=== PATIENT | female | born 1990 | race Two or more races ===

== ENCOUNTER 2017-11-16 08:30 | Inpatient (IN) | payer OTHER ==
[2017-11-16 09:52] VITALS: BMI 43.2
[2017-11-16 10:19] LABS: BASO % 0.4 % (0-2.0); EOS % 0.2 % (0-4.5); NEUT % 78.8 % (42.8-82.8)
[2017-11-16 10:22] LABS: HEMATOCRIT 39.3 % (32.4-45.2); HEMOGLOBIN 13.1 GM/dL (10.7-15.3); LYMPH % 13.6 % (8-40); MCH 27.4 pg (25.7-33.7); MCHC 33.3 g/dl (32.0-36.0); MEAN CELL VOLUME 82.4 fl (80-96); PLATELET COUNT 288 K/MM3 (134-434); RBC 4.78 M/mm3 (3.60-5.2); RDW 14.1 % (11.6-15.6); WHITE BLOOD COUNT 13.4 K/mm3 (4.0-10.0)
[2017-11-16 10:34] LABS: INR 0.93 (0.82-1.09); PROTHROMBIN TIME (PATIENT) 10.5 SEC (9.7-13.0)
[2017-11-16 10:36] LABS: ACTIVATED PTT 26.2 SECONDS (26.9-34.4)
[2017-11-16 10:41] LABS: ANION GAP 5 (8-16); BLOOD UREA NITROGEN 9 mg/dL (7-18); CHLORIDE 109 mmol/L (98-107); CO2 25 mmol/L (21-32); CREATININE 0.6 mg/dL (0.55-1.02); GLUCOSE,RANDOM 84 mg/dL (74-106); POTASSIUM 4.6 mmol/L (3.5-5.1); SODIUM 139 mmol/L (136-145)
[2017-11-16] MEDS ORDERED: DEXTROSE 5%-LACTATED RINGERS 1,000 ML IV SCH (16:45)
[2017-11-16] MEDS ORDERED: OXYTOCIN 30 UNITS in 0.9% NS 30 UNIT/500 ML INFUS.BAG IVPB ONE (18:20)
[2017-11-16] MEDS ORDERED: AMPICILLIN SODIUM 2 GM VIAL ONE (18:44)
[2017-11-16] MEDS ORDERED: AMPICILLIN - 2 GM in SODIUM CHLORIDE 100 ML IVPB ONE (18:45)
[2017-11-16] MEDS ORDERED: OXYTOCIN 30 UNITS in 0.9% NS 30 UNIT/500 ML INFUS.BAG IVPB SCH (18:45)
--- NOTE | 2017-11-16 19:25 | HP ---
Past Medical History - Admission History of Present Illness: 27 yo @ 40 2/7 wks by first trimester ultrasound, EDC 11/14/2017 complicated by: 1. BMI 43 - 19 lb wt gain Normal early GCT and normal 26 wk GCT Sonogram 11/14/17 - EFW 67% (3886 gms/8lb 9oz) 2. GBS positive - no PCN allergy 3. History of PCOS Patient reports pain with contractions which began this AM She reports movement, denies leakage of fluid or vaginal bleeding. History Source: Patient Limitations to Obtaining History: No Limitations - Past Medical History Cardiovascular: No: HTN Pulmonary: No: Asthma Gastrointestinal: No: GERD ...: 1 ...Para: 0 ...Term: 0 ...: 0 ...Spon : 0 ...Induced : 0 ...Multiple Gestation: 0 ...LMP: 01/29/17 ... Weeks Gestation by Dates: 41.5 ...EDC by Dates: 11/05/17 ...EDC by Sono: 11/14/17 Heme/Onc: No: Anemia - Past Surgical History Past Surgical History: Yes: Tonsillectomy Hx Myomectomy: No Hx Transabdominal Cerclage: No - Smoking History Smoking history: Never smoked - Alcohol/Substance Use Hx Alcohol Use: No History of Substance Use: reports: None - Social History History of Recent Travel: No Home Medications - Allergies Allergies/Adverse Reactions: Allergies Allergy/AdvReac Type Severity Reaction Status Date / Time No Known Allergies Allergy Verified 10/26/17 16:19 - Home Medications Home Medications: Ambulatory Orders Vit/Iron Fum/Folic AC [ Tablet] 1 each PO DAILY 10/26/17 Family Disease History - Family Disease History Family History: Denies Review of Systems - Review of Systems Constitutional: reports: No Symptoms Neck: reports: No Symptoms Cardiovascular: reports: No Symptoms Respiratory: reports: No Symptoms Gastrointestinal: reports: No Symptoms Genitourinary: reports: No Symptoms Musculoskeletal: reports: No Symptoms Neurological: reports: No Symptoms Endocrine: reports: No Symptoms Psychiatric: reports: No Symptoms Physical Exam - Maternity Vital Signs: Vital Signs Temperature 98.2 F 11/16/17 18:00 Pulse Rate 79 11/16/17 19:00 Respiratory Rate 20 11/16/17 19:00 Blood Pressure 121/73 11/16/17 19:00 O2 Sat by Pulse Oximetry (%) Constitutional: Yes: Well Nourished, No Distress, Calm Cardiovascular: Yes: Regular Rate and Rhythm Lungs: Clear to auscultation - Abdominal Exam/OB Fundal Height: 40 Number of Fetuses: Single Presentation: Vertex Contractions: Yes Regularity: Regular Intensity: Mod/Strong Category: I Accelerations: Non-Uniform Decelerations: None - Vaginal Exam/OB Dilatation (cm): 3 Effacement (%): 50 Amniotic Membrane Status: Intact - Physical Exam Psychiatric: Yes: Alert, Oriented - Labs Lab Results: CBC, BMP 11/16/17 10:00 11/16/17 10:00 Hemorrhage Risk Assessment - Risk Factors Medium Risk Factors: Yes: None High Risk Factors: Yes: None Risk Score: 1 Risk Level: Medium Risk Assessment/Plan 27 yo @ 40 2/7 wks active labor 1. Admit to L&D; Consents reviewed and signed; Routine labs collected and sent 2. GBS positive - will start ampicillin per protocol 3. Will offer pain medication upon patient request
[2017-11-16] MEDS: ELECTROLYTE-148 SOLN 1,000 ML IV SCH (19:30)
[2017-11-16] MEDS ORDERED: FENTANYL/BUPIVACAINE/NS/PF - PCEA - 50 ML DISP.SYRIN EP ONE (19:59)
[2017-11-16] MEDS ORDERED: NALOXONE HCL 0.4 MG/ML VIAL IVPUSH PRN (20:11)
[2017-11-16] MEDS ORDERED: FENTANYL/BUPIVACAINE/NS/PF - PCEA - 50 ML DISP.SYRIN EP SCH (20:15)
--- NOTE | 2017-11-16 20:56 | PN ---
Ante-Partal Exam - Subjective Subjective: Comfortable s/p epidural Vital Signs: Vital Signs Temperature 98.2 F 11/16/17 18:00 Pulse Rate 79 11/16/17 19:00 Respiratory Rate 20 11/16/17 19:00 Blood Pressure 121/73 11/16/17 19:00 O2 Sat by Pulse Oximetry (%) Bleeding: No Headache: No Visual changes: No Right upper quadrant pain: No - Contractions Contractions: Yes Regularity: Regular Intensity: Unaware Monitor Mode: External - Exam during Labor Heart Rate: 130 Variability: Moderate Category: I Monitor Accelerations: Present Monitor Decelerations: None Exam: Vaginal Dilatation (cm): 3 Effacement (%): 80 Amniotic Membrane Status: Ruptured (clear) Amniotic Fluid: Clear Station: -3 - Intrapartum Hemorrhage Risk Medium Risk Factors: None High Risk Factors: None Risk Score: 0 Risk Level: Low Risk - Assessment/Plan Assessment/Plan: 27 yo active labor 1. Good cervical change, will continue pitocin per protocol 2. GBS positive, on ampicillin per protocol 3. Pain well controlled with epidural 4. Will continue expectant management
[2017-11-16] MEDS ORDERED: AMPICILLIN SODIUM 1 GM VIAL ONE (22:55)
[2017-11-16] MEDS: AMPICILLIN - 1 GM in SODIUM CHLORIDE 100 ML IVPB SCH (23:00)
--- NOTE | 2017-11-16 23:17 | PN ---
Ante-Partal Exam - Subjective Subjective: Comfortable s/p epidural No complaints Vital Signs: Vital Signs Temperature 99.0 F 11/16/17 22:00 Pulse Rate 92 H 11/16/17 23:06 Respiratory Rate 18 11/16/17 23:06 Blood Pressure 112/60 11/16/17 23:06 O2 Sat by Pulse Oximetry (%) 99 11/16/17 23:06 Bleeding: No Headache: No Visual changes: No Right upper quadrant pain: No - Contractions Contractions: Yes Regularity: Regular Intensity: Unaware Monitor Mode: External - Exam during Labor Heart Rate: 135 Variability: Moderate Category: I Monitor Accelerations: Present Monitor Decelerations: None Exam: Vaginal Dilatation (cm): 3 Effacement (%): 80 Amniotic Membrane Status: Intact Presentation: Vertex Station: -1 - Intrapartum Hemorrhage Risk Medium Risk Factors: None High Risk Factors: None Risk Score: 0 Risk Level: Low Risk - Assessment/Plan Assessment/Plan: 27 yo active labor 1. good cervical change 2. continue ampicillin 3. pain well controlled with epidural 4. category I FHT
[2017-11-17] MEDS ORDERED: FENTANYL/BUPIVACAINE/NS/PF - PCEA - 50 ML DISP.SYRIN EP ONE ×3 (00:14→09:04)
[2017-11-17] MEDS ORDERED: AMPICILLIN SODIUM 1 GM VIAL ONE ×4 (02:46→14:29)
[2017-11-17] MEDS: AMPICILLIN - 1 GM in SODIUM CHLORIDE 100 ML IVPB SCH ×4 (03:00→14:35)
[2017-11-17] MEDS: ELECTROLYTE-148 SOLN 1,000 ML IV SCH (03:00)
--- NOTE | 2017-11-17 03:35 | PN ---
Ante-Partal Exam - Subjective Subjective: Patient reports back pain with contractions Vital Signs: Vital Signs Temperature 98.2 F 11/17/17 01:00 Pulse Rate 86 11/17/17 02:30 Respiratory Rate 18 11/17/17 02:30 Blood Pressure 113/60 11/17/17 02:30 O2 Sat by Pulse Oximetry (%) 100 11/17/17 02:30 Bleeding: Yes Bleeding Description: Mild Headache: No Visual changes: No Right upper quadrant pain: No - Contractions Contractions: Yes Regularity: Regular Intensity: Mod/Strong Monitor Mode: External - Exam during Labor Heart Rate: 135 Variability: Moderate Category: I Monitor Accelerations: Present Monitor Decelerations: None Exam: Vaginal Dilatation (cm): 5 Effacement (%): 100 Amniotic Membrane Status: Bulging Amniotic Fluid: Blood Stained Presentation: Vertex Station: 0 - Intrapartum Hemorrhage Risk Medium Risk Factors: None High Risk Factors: None Risk Score: 0 Risk Level: Low Risk - Assessment/Plan Assessment/Plan: 27 yo active labor 1. Good cervical change, will continue pitocin per protocol 2. GBS positive, on ampicillin 3. Category I FHT 4. Pain with inadequate control, will contact anesthesia for assistance 5. Will proceed with expectant management
[2017-11-17] MEDS ORDERED: BUPIVACAINE HCL/PF 0.5% (5MG/ML) 10 ML VIAL ONE (05:44)
--- NOTE | 2017-11-17 07:16 | PN ---
Ante-Partal Exam - Subjective Subjective: Patient comfortable s/p epidural Vital Signs: Vital Signs Temperature 99.5 F 11/17/17 06:00 Pulse Rate 82 11/17/17 06:40 Respiratory Rate 18 11/17/17 06:40 Blood Pressure 120/71 11/17/17 06:40 O2 Sat by Pulse Oximetry (%) 97 11/17/17 06:40 Bleeding: No Headache: No Visual changes: No Right upper quadrant pain: No - Contractions Contractions: Yes Regularity: Regular Intensity: Moderate Monitor Mode: External - Exam during Labor Heart Rate: 135 Variability: Moderate Category: I Monitor Accelerations: Present Monitor Decelerations: None Exam: Vaginal Dilatation (cm): 8 Effacement (%): 100 Amniotic Membrane Status: Ruptured Amniotic Fluid: Blood Stained Presentation: Vertex Station: -1 - Intrapartum Hemorrhage Risk Medium Risk Factors: None High Risk Factors: None Risk Score: 0 Risk Level: Low Risk - Assessment/Plan Assessment/Plan: 27 yo active labor 1. Cervical change noted, will restart pitocin 2. GBS positive, on ampicillin 3. Category I FHT 4. Pain well controlled with epidural 5. Will proceed with expectant management
[2017-11-17] MEDS ORDERED: OXYTOCIN 30 UNITS in 0.9% NS 30 UNIT/500 ML INFUS.BAG IVPB ONE (07:41)
[2017-11-17] MEDS ORDERED: OXYTOCIN 20 UNITS in 0.9% NS 20 UNIT/1,000 ML INFUS.BAG IV ONE ×2 (10:52→17:14)
[2017-11-17] MEDS ORDERED: LIDOCAINE HCL 1% PRESERVATIVE FREE - 30ML VIAL ONE (14:57)
[2017-11-17] MEDS ORDERED: oxyCODONE HCL 5 MG TABLET PO PRN (15:26)
[2017-11-17] MEDS ORDERED: BENZOCAINE 20% 57 GM BOTTLE TP PRN (15:26)
[2017-11-17] MEDS ORDERED: METHYLERGONOVINE MALEATE 0.2 MG/1 ML AMP IM PRN (15:26)
[2017-11-17] MEDS ORDERED: BENZOCAINE 28 GM HEMORRHOIDAL OINTMENT TP PRN (15:26)
[2017-11-17] MEDS ORDERED: BISACODYL 10 MG SUPP.RECT RC PRN (15:26)
[2017-11-17] MEDS ORDERED: WITCH HAZEL 50% (TUCKS) 40 PAD/JAR PAD TP PRN (15:26)
[2017-11-17] MEDS ORDERED: D5W-LR W/ 20 UNITS OXYTOCIN 1,000 ML IV SCH (15:30)
[2017-11-17] MEDS ORDERED: OXYTOCIN 20 UNITS in 0.9% NS 20 UNIT/1,000 ML INFUS.BAG IV SCH (15:45)
[2017-11-17 15:49] LABS: ARTERIAL BLD GAS O2 SATURATION 17.6 % (90-98.9); ARTERIAL BLOOD GAS BASE EXCESS -9.6 meq/l (-2-2); ARTERIAL BLOOD GAS PO2 14.8 mmHg (80-100); ARTERIAL BLOOD GAS pH 7.21 (7.35-7.45)
[2017-11-17 15:57] LABS: VENOUS PC02 33.4 mmHg (38-52); VENOUS PH 7.39 (7.32-7.42); VENOUS PO2 36.5 mmHg (28-48)
[2017-11-17] MEDS ORDERED: ACETAMINOPHEN 325 MG TABLET (FP) ONE (17:14)
[2017-11-17] MEDS ORDERED: IBUPROFEN 600 MG TABLET (FP) PO ONE (17:14)
[2017-11-17] MEDS: ACETAMINOPHEN 325 MG TABLET (FP) PO PRN (17:50)
[2017-11-17] MEDS: IBUPROFEN 600 MG TABLET (FP) PO PRN (17:50)
[2017-11-17] MEDS: FERROUS SO4 325 MG TABLET (FP) PO SCH (18:20)
[2017-11-18] MEDS: IBUPROFEN 600 MG TABLET (FP) PO PRN (01:41)
[2017-11-18] MEDS: ACETAMINOPHEN 325 MG TABLET (FP) PO PRN (01:41)
[2017-11-18 07:48] LABS: BASO % 0.3 % (0-2.0); EOS % 0.4 % (0-4.5); HEMOGLOBIN 11.6 GM/dL (10.7-15.3); LYMPH % 11.7 % (8-40); MCH 27.7 pg (25.7-33.7); MCHC 33.2 g/dl (32.0-36.0); MEAN CELL VOLUME 83.6 fl (80-96); MEAN PLT VOLUME 9.2 fl (7.5-11.1); MONO % 7.5 % (3.8-10.2); NEUT % 80.1 % (42.8-82.8); PLATELET COUNT 184 K/MM3 (134-434); RBC 4.19 M/mm3 (3.60-5.2); RDW 14.3 % (11.6-15.6); WHITE BLOOD COUNT 16.9 K/mm3 (4.0-10.0)
[2017-11-18] MEDS: FERROUS SO4 325 MG TABLET (FP) PO SCH ×2 (09:22→16:59)
[2017-11-18] MEDS: PRENATAL VITAMINS W/ FOLIC ACID TABLET (FP) PO SCH (09:22)
--- NOTE | 2017-11-18 14:57 | PN ---
Post Progress Note - Subjective Subjective: No complains, voiding, ambulating, bleeding controlled Post Day: 1 Type of Delivery: Vital Signs: Vital Signs Temperature 98.2 F 11/18/17 09:43 Pulse Rate 85 11/18/17 09:43 Respiratory Rate 18 11/18/17 09:43 Blood Pressure 111/63 11/18/17 09:43 O2 Sat by Pulse Oximetry (%) 100 11/17/17 16:00 Breast Exam: Yes: Soft Uterus: Yes: Fundus Firm Abdomen/GI: Yes: Abdomen soft Lochia: Yes: Rubra Lochia, amount: Small Extremities: Yes: Calves non-tender Perineum: Yes: Laceration Activity: Ambulating - Labs Labs: CBC WBC 16.9 K/mm3 (4.0-10.0) H 11/18/17 07:03 RBC 4.19 M/mm3 (3.60-5.2) 11/18/17 07:03 Hgb 11.6 GM/dL (10.7-15.3) D 11/18/17 07:03 Hct 35.0 % (32.4-45.2) 11/18/17 07:03 MCV 83.6 fl (80-96) 11/18/17 07:03 MCH 27.7 pg (25.7-33.7) 11/18/17 07:03 MCHC 33.2 g/dl (32.0-36.0) 11/18/17 07:03 RDW 14.3 % (11.6-15.6) 11/18/17 07:03 Plt Count 184 K/MM3 (134-434) D 11/18/17 07:03 MPV 9.2 fl (7.5-11.1) 11/18/17 07:03 Neutrophils % 80.1 % (42.8-82.8) 11/18/17 07:03 Lymphocytes % 11.7 % (8-40) 11/18/17 07:03 Monocytes % 7.5 % (3.8-10.2) 11/18/17 07:03 Eosinophils % 0.4 % (0-4.5) D 11/18/17 07:03 Basophils % 0.3 % (0-2.0) 11/18/17 07:03 Assessment/Plan 27yo P1 s/p PPD # 1 VSS, Afebrile Doing well Rh positive no need for RhoGam Repeat CBC in am to follow WBC Plan D/C 11/19/17 NPV 6wks RTO 4-6 wks
--- NOTE | 2017-11-18 14:59 | DS ---
Physical Exam-INDUSTRI[employer]OR Vital Signs: Vital Signs Temperature 98.2 F 11/18/17 09:43 Pulse Rate 85 11/18/17 09:43 Respiratory Rate 18 11/18/17 09:43 Blood Pressure 111/63 11/18/17 09:43 O2 Sat by Pulse Oximetry (%) 100 11/17/17 16:00 Constitutional: Yes: Well Nourished Eyes: Yes: WNL, Conjunctiva Clear, EOM Intact HENT: Yes: WNL Neck: Yes: WNL, Supple, Trachea Midline Cardiovascular: Yes: WNL, Regular Rate and Rhythm Respiratory: Yes: WNL, Regular, CTA Bilaterally Gastrointestinal: Yes: WNL, Normal Bowel Sounds, Soft Pelvis: Yes: WNL External Genitalia: Yes: Normal Vaginal Exam: Yes: Normal Uterus: Yes: Normal ....Post : Yes: Uterus firm, Uterus non-tender Breast(s): Yes: WNL Musculoskeletal: Yes: WNL Extremities: Yes: WNL Integumentary: Yes: WNL Neurological: Yes: WNL, Alert, Oriented ...Motor Strength: WNL Psychiatric: Yes: WNL, Alert, Oriented Labs: CBC, BMP 11/18/17 07:03 11/16/17 10:00 Delivery - Delivery Type of Anesthesia: Local, Epidural Episiotomy/Laceration: Midline, 1st degree EBL (cc): 300 Delivery, Single - Stages of Labor Date 1st Stage Initiatied: 11/16/17 Time 1st Stage Initiated: 10:00 Date 2nd Stage Initiated: 11/17/17 Time 2nd Stage Initiated: 14:00 Date of Delivery: 11/17/17 Time of Delivery: 15:00 Time Placenta Delivered: 15:04 - 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 You may walk unlimited donell of and climb stairs. You may resume driving the car when you feel safe and comfortable behind the wheel. No sexual activity as instructed. Wound care If you have a bandage, leave it on, and keep dry for 48-72 hours. After that time discard the outer bandage. If they are tapes on the skin under the out of bandage leave them in place. They will peel off in the next 7 to 10 days. Do Not Peel them off. You may shower the day after surgery. If there are tapes present on the skin, you may shower over them. Diet There are no dietary restrictions. Eat healthy, high-fiber foods. Drink 6 to 8 glasses of liquid each day. This will assist in keeping your bowels are regular. Pain management You may take Tylenol or acetaminophen or Ibuprofen (for example, Motrin, Advil etc.) from my pain prescription medication is ordered should be taken as prescribed for moderate to severe pain. Call MD for any of the following: Severe pain not relieved by medication Fever of 101 or higher Excessive bleeding or drainage on dressing Inability to urinate Referrals: Ruth Trent MD [Staff Physician] - Disposition: HOME - Home Medications Comprehensive Discharge Medication List: Ambulatory Orders Vit/Iron Fum/Folic AC [ Tablet] 1 each PO DAILY 10/26/17
--- NOTE | 2017-11-18 17:24 | PN ---
Progress Note (short form) - Note Progress Note: Patient had normal vaginal delivery yesterday under epidural anesthesia and is c /o some numbness and heaviness left thigh.It could be from being in tendlinberg position pushing baby.Requested neurology consult for further evaluation and will f/u tomorrow.
[2017-11-18] MEDS ORDERED: SENNOSIDES/DOCUSATE COMBO (SENNA PLUS) TABLET (UD) PO PRN (22:00)
--- NOTE | 2017-11-19 06:52 | PN ---
Post Progress Note - Subjective Subjective: Patient is currently feeling well Reported feeling numbness in the Left thigh after sitting for too long on the toilet Reports full sensation and mobility voiding, ambulating without difficulty Post Day: 2 Type of Delivery: Vital Signs: Vital Signs Temperature 98.3 F 11/18/17 22:00 Pulse Rate 83 11/18/17 22:00 Respiratory Rate 18 11/18/17 22:00 Blood Pressure 113/66 11/18/17 22:00 O2 Sat by Pulse Oximetry (%) 100 11/17/17 16:00 Breast Exam: Yes: Soft Uterus: Yes: Fundus Firm Abdomen/GI: Yes: Abdomen soft Lochia: Yes: Rubra Lochia, amount: Small Extremities: Yes: Calves non-tender, Edema Activity: Ambulating - Labs Labs: CBC WBC 16.9 K/mm3 (4.0-10.0) H 11/18/17 07:03 RBC 4.19 M/mm3 (3.60-5.2) 11/18/17 07:03 Hgb 11.6 GM/dL (10.7-15.3) D 11/18/17 07:03 Hct 35.0 % (32.4-45.2) 11/18/17 07:03 MCV 83.6 fl (80-96) 11/18/17 07:03 MCH 27.7 pg (25.7-33.7) 11/18/17 07:03 MCHC 33.2 g/dl (32.0-36.0) 11/18/17 07:03 RDW 14.3 % (11.6-15.6) 11/18/17 07:03 Plt Count 184 K/MM3 (134-434) D 11/18/17 07:03 MPV 9.2 fl (7.5-11.1) 11/18/17 07:03 Neutrophils % 80.1 % (42.8-82.8) 11/18/17 07:03 Lymphocytes % 11.7 % (8-40) 11/18/17 07:03 Monocytes % 7.5 % (3.8-10.2) 11/18/17 07:03 Eosinophils % 0.4 % (0-4.5) D 11/18/17 07:03 Basophils % 0.3 % (0-2.0) 11/18/17 07:03 Other Findings, Remarks: Neuro exam equal lower extremity bilaterally Assessment/Plan 27yo P1 s/p PPD # 2 VSS, Afebrile Doing well WBC dropping appropriately Plan D/C 11/19/17 once seen by Neuro NPV 6wks RTO 4-6 wks
[2017-11-19] MEDS: FERROUS SO4 325 MG TABLET (FP) PO SCH ×2 (08:15→17:09)
[2017-11-19 08:38] LABS: BASO % 0.3 % (0-2.0); EOS % 1.5 % (0-4.5); HEMATOCRIT 32.8 % (32.4-45.2); HEMOGLOBIN 10.8 GM/dL (10.7-15.3); LYMPH % 14.7 % (8-40); MCH 27.4 pg (25.7-33.7); MEAN CELL VOLUME 83.1 fl (80-96); MEAN PLT VOLUME 8.8 fl (7.5-11.1); NEUT % 77.5 % (42.8-82.8); PLATELET COUNT 225 K/MM3 (134-434); RBC 3.95 M/mm3 (3.60-5.2); RDW 14.1 % (11.6-15.6); WHITE BLOOD COUNT 12.6 K/mm3 (4.0-10.0)
[2017-11-19] MEDS: PRENATAL VITAMINS W/ FOLIC ACID TABLET (FP) PO SCH (10:11)
[2017-11-19 10:22] VITALS: BP 121/79; PULSE 77; TEMP 98.6
--- NOTE | 2017-11-19 18:40 | CONSULT ---
Consult - text type - Consultation Consultation Note: NEUROLOGY CONSULTATION is greatly appreciated: This 27 yo woman with no sig PMH is 2 days post- her first child. She has history of episodic headaches in the past as well as growing pains (age 11-12). For much of her adult life she can have back pain with leg pains and cramps before her periods. Yesterday, 1 day post-, while resting in bed, she developed a "heaviness" and "numbness" involving the entire left thigh (circumstantially) between the hip and the knee which resolved when she walked and recurred at res over a few hours. Better today. ADRIANO: Obese, -SLR. Distal pulses intact NEURO: MS/speech: Normal CN II-XII: Normal Motor: No drift or tremor. Normal strength, tone, bulk, and reflexes. Toes downgoing. Coord: No FT dystaxia Sensory: Normal in all distributions both legs. Romberg - Gait: Normal. Walks on heals, toes, tandems. IMP: Normal examination. Most likely a post- exacerbation of Restless Legs Syndrome (RLS)- possibly due to blood/iron loss. Distribution not suggestive of Meralgia paresthetica or radiculopathy. SUGGEST: Continue Fe++ and vitamin supplements. Pt warned she may have recurrent symptoms at rest (ie: bed, couch , car) but that these should continue to improve with movement/walking. Check Fe++, TIBC, ferritin, and Neuro f/u in 2-3 weeks if symptoms persist. Thank you very much, Vern Reed MD
== END 2017-11-19 20:30 | disposition home or self-care (01) | DRG 775 ==
LOC: JDEL 08:30 → JLDR 09:00 → J3N 11-17 19:20 → J3W 11-18 15:05
PROVIDERS: ADMIT Obstetrics & Gynecology; ATTEND Obstetrics & Gynecology
PROC: 10E0XZZ Delivery of Products of Conception, External Approach (ICD-10-PCS; principal; 2017-11-17)
PROC: 0W8NXZZ Division of Female Perineum, External Approach (ICD-10-PCS; 2017-11-17)
PROC: 0HQ9XZZ Repair Perineum Skin, External Approach (ICD-10-PCS; 2017-11-17)
DX: O70.0 First degree perineal laceration during delivery (principal); Z68.41 Body mass index [BMI] 40.0-44.9, adult; O99.214 Obesity complicating childbirth; E66.9 Obesity, unspecified; Z3A.40 40 weeks gestation of pregnancy; G25.81 Restless legs syndrome; O26.893 Other specified pregnancy related conditions, third trimester; Z22.330 Carrier of Group B streptococcus; Z37.0 Single live birth
CPT/HCPCS: 36415; 36600; 59409; 80048; 82803; 85025; 85610; 85730; 86593; 86850; 86900; 86901; 87389